=== PATIENT | male | born 1995 | race American Indian/Alaskan Native ===

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

== ENCOUNTER 2017-03-25 21:51 | Emergency (ER) | payer MEDICAID ==
[2017-03-25 22:19] VITALS: BP 138/83
== END 2017-03-25 22:30 | disposition left against medical advice (07) ==
LOC: ED 21:51
DX: Z53.21 Procedure and treatment not carried out due to patient leaving prior to being seen by health care provider (principal)

== ENCOUNTER 2021-02-02 12:19 | Outpatient (CLI) | payer OTHER ==
--- NOTE | 2021-02-02 14:28 | XRay Report ---
LUMBAR SPINE 2 VIEWS 1247 INDICATION: LUMBAR PAIN COMPARISON: None available. FINDINGS: No fractures or subluxations are seen. Disk spaces show mild narrowing at L5-S1 but other d isc spaces are maintained. Signer Name: Jose Menchaca MD Signed: 02/02/2021 2:23 PM Workstation Name: [id number]
== END 2021-02-02 12:20 | disposition home or self-care (01) ==
LOC: XRAY 12:19
PROVIDERS: ATTEND Internal Medicine
DX: Z02.71 Encounter for disability determination (principal); M47.817 Spondylosis without myelopathy or radiculopathy, lumbosacral region
CPT/HCPCS: 72100